=== PATIENT | female | born 1965 | race Two or more races ===

== ENCOUNTER → 2019-10-22 | Emergency (ER) | payer OTHER ==
[~2019-10-22] VITALS: Ht 149.9 cm; Wt 83.0 kg
[~2019-10-22] MED LIST: INTESTINEX680 M1 PO; PEPCID40 MG PO; ZOFRAN8 M1 PO
== END | disposition home or self-care (01) ==
LOC: ER 19:09
DX: K52.9 Noninfective gastroenteritis and colitis, unspecified (principal)